=== PATIENT | male | born 1940 ===

== ENCOUNTER 2018-06-07 06:46 | Day surgery (SDC) | payer OTHER ==
[~2018-06-07 06:46] MED LIST: COZAAR100 MG PO; LUMIGAN2.5 M1 OP; TRUSOPT10 ML OP
[2018-06-07] MEDS ORDERED: ULTRACET PO (12:55)
[2018-06-07] MEDS ORDERED: NEURONTIN300 MG PO (12:55)
[2018-06-07] MEDS ORDERED: MIRALAX17 GM PO (12:55)
[2018-06-07] MEDS ORDERED: ZOFRAN ODT4 MG PO (12:55)
== END 2018-06-07 15:50 | disposition home or self-care (01) ==
LOC: CIR.AMB 06:46
DX: K40.90 Unilateral inguinal hernia, without obstruction or gangrene, not specified as recurrent (principal)